=== PATIENT | female | born 1970 | race Caucasian/White ===

== ENCOUNTER 2020-04-21 08:29 | Emergency (ER) | payer OTHER, BC ==
[~2020-04-21] VITALS: Ht 182.8 cm; Wt 59.0 kg
== END 2020-04-21 09:21 | disposition home or self-care (01) ==
LOC: ED 08:29
DX: S29.011A Strain of muscle and tendon of front wall of thorax, initial encounter (principal); F17.200 Nicotine dependence, unspecified, uncomplicated; X58.XXXA Exposure to other specified factors, initial encounter; Y93.89 Activity, other specified; Y92.89 Other specified places as the place of occurrence of the external cause; Y99.8 Other external cause status

== ENCOUNTER 2021-03-31 12:25 | Emergency (ER) | payer BC, OTHER ==
[~2021-03-31] VITALS: Ht 182.8 cm; Wt 59.0 kg
[2021-03-31] MEDS ORDERED: ANTIBIOTIC28.4 GM T (14:43)
[2021-03-31] MEDS ORDERED: TRAMADOL HCL50 MG PO ×2 (14:43→14:45)
[2021-03-31] MEDS ORDERED: CEPHALEXIN500 M1 PO (14:43)
== END 2021-03-31 14:50 | disposition home or self-care (01) ==
LOC: ED 12:25
DX: S76.011A Strain of muscle, fascia and tendon of right hip, initial encounter (principal); M25.852 Other specified joint disorders, left hip; L03.115 Cellulitis of right lower limb; L02.415 Cutaneous abscess of right lower limb; W19.XXXA Unspecified fall, initial encounter; Y93.89 Activity, other specified; Y92.89 Other specified places as the place of occurrence of the external cause; Y99.8 Other external cause status

== ENCOUNTER 2023-02-09 14:57 | Emergency (ER) | payer OTHER ==
[~2023-02-09] VITALS: Ht 182.8 cm; Wt 59.0 kg
[~2023-02-09 14:57] MED LIST: ANTIBIOTIC28.4 GM T; CEPHALEXIN500 M1 PO; TRAMADOL HCL50 MG PO
[2023-02-09] MEDS ORDERED: KETOROLAC10 MG PO (16:26)
[2023-02-09] MEDS ORDERED: CYCLOBENZAPRINE5 M3 PO (16:26)
== END 2023-02-09 16:32 | disposition home or self-care (01) ==
LOC: ED 14:57
DX: S39.012A Strain of muscle, fascia and tendon of lower back, initial encounter (principal); X50.1XXA Overexertion from prolonged static or awkward postures, initial encounter; Y93.89 Activity, other specified; Y92.89 Other specified places as the place of occurrence of the external cause; Y99.8 Other external cause status

== ENCOUNTER 2023-09-17 22:23 | Emergency (ER) | payer OTHER ==
[~2023-09-17] VITALS: Ht 182.8 cm; Wt 63.5 kg
[~2023-09-17 22:23] MED LIST changes: +CYCLOBENZAPRINE5 M3 PO; +DOXYCYCLINE HY100 M3 PO; +KETOROLAC10 MG PO; +MAGNESIUM OXID400 MG PO; +PREDNISONE10 MG PO; +VITAMIN D350 MCG PO
[2023-09-17] MEDS ORDERED: PREDNISONE10 MG PO (22:28)
[2023-09-17] MEDS ORDERED: VENT7GM INH (22:29)
[2023-09-17] MEDS ORDERED: MAGNESIUM400 M1 PO (22:29)
[2023-09-17 22:46] LABS: BASO % 0.2 % (0.0-1.0); HEMATOCRIT 31.3 % (42.0-52.0); LYMPH # 0.9 10*3/uL (1.3-4.4); LYMPH % 8.8 % (27.0-41.0); MEAN CELL VOLUME 102.6 fl (80.0-94.0); MEAN CORPUSCULAR HGB 36.1 pg (27.0-31.0); MEAN CORPUSCULAR HGB CONC 35.1 g/dl (33.0-37.0); MEAN PLATELET VOLUME 8.2 fl (9.6-12.3); MONO # 0.3 10*3/uL (0.1-1.0); MONO % 3.2 % (3.0-9.0); NEUT # 8.9 10*3/uL (2.3-7.9); NEUT % 85.2 % (47.0-73.0); PLATELET COUNT AUTOMATED 339 10*3/uL (130-400); RED BLOOD COUNT 3.05 10*6/uL (4.50-5.90); RED CELL DISTRI WIDTH 12.9 % (0-14.5); WHITE BLOOD COUNT 10.4 10*3/uL (4.8-10.8)
[2023-09-17 23:16] LABS: ALKALINE PHOSPHATASE 111 U/L (46-116); BUN 11 mg/dl (9-23); CHLORIDE 107 mmol/L (98-107); POTASSIUM 3.7 mmol/L (3.4-5.1); SGPT/ALT 54 U/L (5-49)
[2023-09-17 23:32] LABS: ETHYL ALCOHOL 360.2 mg/dl (<3)
== END 2023-09-18 00:53 | disposition home or self-care (01) ==
LOC: ED 22:23
PROVIDERS: Internal Medicine
DX: F10.129 Alcohol abuse with intoxication, unspecified (principal); R79.89 Other specified abnormal findings of blood chemistry; D53.9 Nutritional anemia, unspecified; E44.1 Mild protein-calorie malnutrition; Z68.1 Body mass index [BMI] 19.9 or less, adult; F17.200 Nicotine dependence, unspecified, uncomplicated; Y90.0 Blood alcohol level of less than 20 mg/100 ml

== ENCOUNTER 2024-05-06 04:39 | Emergency (ER) | payer OTHER ==
[~2024-05-06] VITALS: Wt 45.4 kg
[~2024-05-06 04:39] MED LIST changes: +MAGNESIUM400 M1 PO; +VENT7GM INH
[2024-05-06] MEDS ORDERED: LORazepam 2 MG/ML VIAL IV ONE (04:50)
[2024-05-06 05:26] LABS: ALKALINE PHOSPHATASE 104 U/L (46-116); BUN 10 mg/dl (9-23); CHLORIDE 105 mmol/L (98-107); ETHYL ALCOHOL 3.5 mg/dl (<3); POTASSIUM 3.2 mmol/L (3.4-5.1); SGPT/ALT 20 U/L (5-49); TOTAL PROTEIN 5.6 gm/dL (6.0-8.0)
[2024-05-06] MEDS ORDERED: MAGNESIUM SULFATE 100 ML IV ONE (05:40)
[2024-05-06] MEDS ORDERED: SODIUM CHLORIDE 0.9% 1,000 ML IV ONE (06:45)
[2024-05-06] MEDS ORDERED: Thiamine 200 MG/2 ML VIAL IV ONE (06:45)
[2024-05-06 06:52] LABS: MANUAL DIFF REFLEX YES; MEAN CELL VOLUME 104.6 fl (80.0-94.0); MEAN CORPUSCULAR HGB 29.6 pg (27.0-31.0); MEAN CORPUSCULAR HGB CONC 28.3 g/dl (33.0-37.0); MEAN PLATELET VOLUME 8.9 fl (9.6-12.3); NUCLEATED RED BLOOD CELL 0.1 10*3/uL (0.0-0.0); NUCLEATED RED BLOOD CELL 0.5 % (0.0-0.0); PLATELET COUNT AUTOMATED 182 10*3/uL (130-400); RED BLOOD COUNT 1.08 10*6/uL (4.50-5.90); RED CELL DISTRI WIDTH 25.1 % (0-14.5); WHITE BLOOD COUNT 16.1 10*3/uL (4.8-10.8)
[2024-05-06 06:54] LABS: HEMATOCRIT 11.3 % (42.0-52.0)
[2024-05-06 06:57] LABS: BASOPHILS 1 % (0-1); POLYCHROMASIA SLIGHT; ROULEAUX SLIGHT; TARGET CELLS FEW; TOTAL CELLS COUNTED 100 #CELLS
[2024-05-06 06:58] LABS: BURR CELLS FEW; OVALOCYTES FEW; PLATELET SUFFICIENCY NORMAL (NORMAL); TOXIC GRANULATION SLIGHT
[2024-05-06] MEDS ORDERED: OCTREOTIDE ACETATE 500 MCG in SODIUM CHLORIDE 0.9% 100 ML IV SCH ×2 (08:10→08:15)
[2024-05-06] MEDS ORDERED: Pantoprazole Sodium 40 MG in SODIUM CHLORIDE 0.9% 50 ML IV SCH (08:15)
[2024-05-06] MEDS ORDERED: SODIUM CHLORIDE 0.9% 500 ML IV ONE ×2 (09:02→12:27)
[2024-05-06] MEDS ORDERED: NOREPINEPHRINE BITARTRATE/D5W 250 ML IV SCH (10:35)
[2024-05-06 17:20] LABS: BASO # 0.1 10*3/uL (0.0-0.1); BASO % 0.4 % (0.0-1.0); EOS # 0.1 10*3/uL (0.0-0.4); EOS % 0.4 % (1.0-4.0); HEMATOCRIT 22.8 % (42.0-52.0); LYMPH # 1.3 10*3/uL (1.3-4.4); LYMPH % 9.1 % (27.0-41.0); MEAN CORPUSCULAR HGB 31.2 pg (27.0-31.0); MEAN CORPUSCULAR HGB CONC 32.5 g/dl (33.0-37.0); MEAN PLATELET VOLUME 9.2 fl (9.6-12.3); MONO # 0.8 10*3/uL (0.1-1.0); MONO % 5.3 % (3.0-9.0); NEUT # 11.8 10*3/uL (2.3-7.9); NEUT % 83.4 % (47.0-73.0); NUCLEATED RED BLOOD CELL 0.1 10*3/uL (0.0-0.0); NUCLEATED RED BLOOD CELL 0.4 % (0.0-0.0); PLATELET COUNT AUTOMATED 159 10*3/uL (130-400); RED BLOOD COUNT 2.37 10*6/uL (4.50-5.90); RED CELL DISTRI WIDTH 17.7 % (0-14.5); WHITE BLOOD COUNT 14.1 10*3/uL (4.8-10.8)
[2024-05-06 17:21] LABS: MEAN CELL VOLUME 96.2 fl (80.0-94.0)
[2024-05-07] MEDS ORDERED: NOREPINEPHRINE BITARTRATE/D5W 250 ML IV ONE (01:57)
== END 2024-05-07 02:02 | disposition short-term general hospital (02) ==
LOC: ED 04:39
PROVIDERS: Internal Medicine
DX: D53.9 Nutritional anemia, unspecified (principal); K92.2 Gastrointestinal hemorrhage, unspecified; R57.1 Hypovolemic shock; M62.82 Rhabdomyolysis; F17.200 Nicotine dependence, unspecified, uncomplicated; F10.231 Alcohol dependence with withdrawal delirium; Y90.0 Blood alcohol level of less than 20 mg/100 ml

== ENCOUNTER 2025-03-04 17:54 | Emergency (ER) | payer OTHER ==
[~2025-03-04] VITALS: Ht 170.1 cm; Wt 55.8 kg
[2025-03-04] MEDS ORDERED: Acetaminophen/Oxycodone 5 MG/325 MG TABLET PO ONE (18:00)
[2025-03-04] MEDS ORDERED: NATURE'S BLEND F1 MG PO (18:00)
[2025-03-04] MEDS ORDERED: ROSUVASTATIN CA10 MG PO (18:01)
[2025-03-04] MEDS ORDERED: MELOXICAM15 MG PO (18:36)
== END 2025-03-04 18:42 | disposition home or self-care (01) ==
LOC: ED 17:54
DX: S43.401A Unspecified sprain of right shoulder joint, initial encounter (principal); R51.9 Headache, unspecified; J44.9 Chronic obstructive pulmonary disease, unspecified; G62.9 Polyneuropathy, unspecified; Z79.899 Other long term (current) drug therapy; Z87.891 Personal history of nicotine dependence; W18.39XA Other fall on same level, initial encounter; Y93.89 Activity, other specified; Y92.89 Other specified places as the place of occurrence of the external cause; Y99.8 Other external cause status